=== PATIENT | male | born 1985 | race Caucasian/White ===

== ENCOUNTER 2023-12-15 08:01 | Emergency (ER) | payer BC, SELFPAY ==
--- NOTE | ~2023-12-15 | XR_ITS ---
EXAMINATION: [id number] DATE: 12/15/2023 08:39 INDICATION: Anterior left chest pain post fall TECHNIQUE: A frontal inspiratory view of the chest and 4 views of the left ribs were obtained. COMPARISON: None FINDINGS: No rib fractures identified. Mild linear discoid atelectasis at the lateral right lung base. No other airspace opacities, pulmonary edema, pleural effusion or pneumothorax. IMPRESSION: 1. No rib fracture or acute cardiopulmonary disease. Reviewed, dictated and finalized at location A.
[2023-12-15 08:14] VITALS: BP 119/78; PULSE 83; RESP 16; TEMP 36.4; O2SAT 100
--- NOTE | 2023-12-15 08:46 | ED.GENADULT ---
HPI - General Adult General Chief complaint: Fall Stated complaint: pain on left side of chest from fall Time Seen by Provider: 12/15/23 08:12 Source: patient Mode of arrival: ambulatory Limitations: no limitations History of Present Illness HPI narrative: Patient presents for evaluation of left-sided rib pain for the past 5 days. He indicates he was walking on steps in his home when he fell and hit the left side of his back against a doorjamb. He did not his head. No loss of consciousness. He states his current pain is rated ?12? on a scale of 1-10. He describes the pain as sharp and dull. Movement, inspiration, and coughing make his symptoms worse. He takes hydrocodone for chronic joint pain. He has some dyspnea on exertion. He smokes 1 pack per day. He indicates he had an empyema in September of this year. He had a right sided chest tube placed at that time. He developed a productive cough of clear sputum about one week ago, which preceded the fall. Related Data Home Medications Medication Instructions Recorded Confirmed allopurinol 100 mg tablet 100 mg PO DAILY 12/15/23 12/15/23 carvedilol 12.5 mg tablet 12.5 mg PO BID 12/15/23 12/15/23 furosemide 40 mg tablet (Lasix) 40 mg PO DAILY 12/15/23 12/15/23 hydrocodone 10 mg-acetaminophen 1 tablet PO Q6H PRN Pain 12/15/23 12/15/23 325 mg tablet lisinopril 5 mg tablet 5 mg PO BID 12/15/23 12/15/23 metformin 500 mg tablet 500 mg PO BID 12/15/23 12/15/23 Allergies Allergy/AdvReac Type Severity Reaction Status Date / Time No Known Allergies Allergy Verified 12/15/23 08:18 Review of Systems Review of Systems: CONSTITUTIONAL: Denies fever, chills, or sweats. EYES: Denies visual changes, redness, or discharge. ENT: Denies rhinorrhea, congestion, sore throat, or otalgia. CARDIOVASCULAR: Reports left sided chest pain. Denies palpitations, or edema. RESPIRATORY: Reports productive cough of clear sputum GASTROINTESTINAL: Denies abdominal pain, nausea, vomiting, or diarrhea. GENITOURINARY: Denies dysuria or hematuria. SKIN: Reports bruising to left lateral chest pain. MUSCULOSKELETAL: Reports left sided back pain. Denies joint pain, or myalgia. NEUROLOGIC: Denies headache, numbness, dizziness, or weakness. PSYCHIATRIC: Denies anxiety or depression. [facility] Past Medical History Medical History Diabetes Empyema Gout Hypertension Kidney stones Surgical History Surgical History No pertinent past surgical history Family History Family History Father Family history non-contributory Social History Social History (Updated 12/15/23 @ 08:53 by CHAO Patterson, ) Smoking packs per day: 1 Smoking cigarettes per day: 20.0 Smoking status: Current every day smoker Alcohol intake: never Substance use: never Living arrangements: with family Gender identity (if verbalized by the patient): Male Sexual Orientation (if Verbalized by the Patient): Straight or Heterosexual Spiritual care concerns: No Exam Narrative: GENERAL: Well-appearing, well-nourished, and in no acute distress. HEAD: Normocephalic, atraumatic. EYES: PERRLA and EOMI. ENT: Nares clear, no rhinorrhea or epistaxis. Mucous membranes moist. Oropharynx without tonsillar hypertrophy exudate or other lesions. Bilateral TMs pearly reddy nonbulging NECK: Supple. No adenopathy or masses. No carotid bruits or JVD CHEST: Clear to auscultation. No respiratory distress. No wheezes rales or rhonchi HEART: Regular rate and rhythm. No murmur heard. Normal peripheral pulses. ABDOMEN: Soft, nontender, nondistended, normal active bowel sounds. EXTREMITIES: Normal range of motion. No edema. MUSCULOSKELETAL: Tenderness noted to left anterior, lateral and posterior chest wall. SKIN: Ecchymosis noted to the lateral wilmar
== END 2023-12-15 09:03 | disposition home or self-care (01) ==
PROVIDERS: Emergency Provider Nurse Practitioner; PCP Family Medicine
DX: S20.212A Contusion of left front wall of thorax, initial encounter (principal); S20.222A Contusion of left back wall of thorax, initial encounter; W10.9XXA Fall (on) (from) unspecified stairs and steps, initial encounter; J98.11 Atelectasis; E11.9 Type 2 diabetes mellitus without complications; M10.9 Gout, unspecified; I10 Essential (primary) hypertension; F17.210 Nicotine dependence, cigarettes, uncomplicated
CPT/HCPCS: 71101; 99213; G0463